=== PATIENT | male | born 1960 | race Caucasian/White ===

== ENCOUNTER 2016-12-14 13:54 | Emergency (ER) | payer BC, OTHER ==
[~2016-12-14] VITALS: Ht 170.2 cm; Wt 110.2 kg
[2016-12-14] MEDS ORDERED: SODIUM CHLORIDE 0.9% 1,000 ML IVB ONE (14:20)
[2016-12-14 14:30] LABS: Basophils # (auto) 0.1 uL; Basophils % (auto) 0.6 % (0.0-2.0); Eosinophils # (auto) 0.1 uL; Eosinophils % (auto) 1.1 % (0.0-7.0); Hematocrit 40.2 % (41.0-53.0); Hemoglobin 13.3 g/dL (13.5-17.5); Lymphocytes % (auto) 20.3 % (10.0-50.0); Mean Corpuscular Hemoglobin 30.2 pg (28.0-32.0); Mean Corpuscular Volume 91.5 fL (80.0-100.0); Monocytes # (auto) 0.6 uL; Neutrophils # (auto) 7.1 uL; Platelet Count (auto) 283 10^3/uL (140-450); White Blood Cell 9.8 10^3/uL (4.4-10.8)
[2016-12-14 14:47] LABS: Albumin 4.4 g/dL (3.4-5.0); Alkaline Phosphatase 90 U/L (45-117); Anion Gap 14 (5-15); Aspartate Aminotransferase 23 U/L (15-37); BUN/Creatinine Ratio 13.3; Bilirubin, Total 0.6 mg/dL (0.2-1.0); Blood Urea Nitrogen 18 mg/dL (7-18); Calcium 8.7 mg/dL (8.5-10.1); Carbon Dioxide 23 mmol/L (21-32); Chloride 101 mmol/L (98-107); GFR African American 71 mL/min; GFR Non-African American 59 mL/min; Glucose 213 mg/dL (74-106); Potassium 3.1 mmol/L (3.5-5.1); Sodium 138 mmol/L (136-145); Total Protein 8.1 g/dL (6.4-8.2)
[2016-12-14 14:48] LABS: Acetaminophen < 2.0 ug/mL (10-30); Salicylate < 1.7 mg/dL (2.8-20.0)
[2016-12-14 15:44] LABS: Urine RBC None Seen /hpf (0 - 3)
[2016-12-14 15:57] LABS: Urine Bilirubin Negative (Negative); Urine Blood Negative /uL (Negative); Urine Color Yellow (Yellow); Urine Glucose 2+ mg/dL (Normal); Urine Hyaline Cast FEW /lpf (0 - 2); Urine Ketone 1+ (Negative); Urine Mucus FEW (None Seen); Urine Nitrite Negative (Negative); Urine Squamous Epithelial Cell FEW /hpf (<5); Urine Urobilinogen Normal (Negative); Urine pH 5.5 (5.0-8.0)
[2016-12-14 16:15] VITALS: BP 139/87
[2016-12-14] MEDS ORDERED: POTASSIUM CHL 20 Meq TABLET PO ONE (18:15)
[2016-12-15] MEDS ORDERED: HYDROmorphone HCL 2 MG/ML VL ONE (01:58)
[2016-12-15] MEDS ORDERED: ONDANSETRON HCL 4 MG/2 ML VIAL ONE (01:58)
== END 2016-12-14 18:22 | disposition home or self-care (01) ==
LOC: EDBD 13:54 → ER 14:04
DX: T40.2X1A Poisoning by other opioids, accidental (unintentional), initial encounter (principal); I10 Essential (primary) hypertension; R41.82 Altered mental status, unspecified; E87.6 Hypokalemia; Y92.89 Other specified places as the place of occurrence of the external cause; Y99.8 Other external cause status; Y93.89 Activity, other specified
CPT/HCPCS: 36415; 71010; 80053; 80307; 80320; 80329; 81001; 83735; 85025; 93005; 94761; 96360; 99285; J7030

== ENCOUNTER 2020-09-16 09:54 | Emergency (ER) | payer MEDICAID ==
[~2020-09-16] VITALS: Ht 177.8 cm; Wt 113.4 kg
[2020-09-16] MEDS ORDERED: AMIODARONE HCL (50 MG/ ML) 3 ML VIAL IV ONE (09:55)
[2020-09-16] MEDS ORDERED: EPINEPHrine HCL 1 MG/10 ML SYRG IV ONE (09:55)
[2020-09-16] MEDS ORDERED: SODIUM BICARBONATE 8.4% INJ 50ML SYRINGE IV ONE (09:55)
[2020-09-16] MEDS ORDERED: DOPamine 1600mCg/ml 400MG/250ml NSorD5 KIT/BAG IV ONE (09:55)
[2020-09-16] MEDS ORDERED: CALCIUM CHLOR(10%) 100MG/ML 10ML SYRINGE IV ONE (09:55)
[2020-09-16] MEDS ORDERED: SODIUM BICARBONATE 8.4% INJ 50ML SYRINGE ONE (10:04)
[2020-09-16] MEDS ORDERED: NOREPINEPHRINE 8 MG/250ML KIT 250 ML IV ONE (10:13)
== END 2020-09-16 10:44 ==
LOC: ER 09:54 → EDBD 09:54 → ER 10:44
DX: I46.9 Cardiac arrest, cause unspecified (principal); R41.82 Altered mental status, unspecified; R06.89 Other abnormalities of breathing; I10 Essential (primary) hypertension
CPT/HCPCS: 31500; 92950; 93005; 99285; J0171; J0282; J1265